=== PATIENT | female | born 1940 | race Caucasian/White ===

== ENCOUNTER 2018-06-23 16:41 | Outpatient (CLI) | payer OTHER | END 2018-06-23 16:46 | disposition home or self-care (01) | LOC: SONOGRAMA 16:41 | DX: N61.0 Mastitis without abscess (principal); N61.1 Abscess of the breast and nipple ==

== ENCOUNTER 2018-06-26 14:56 | Outpatient (CLI) | payer OTHER | END 2018-06-26 15:00 | disposition home or self-care (01) | LOC: LAB 14:56 | DX: N61.1 Abscess of the breast and nipple (principal) ==

== ENCOUNTER 2018-11-16 08:00 | Inpatient (IN) | payer OTHER ==
[~2018-11-16] VITALS: Ht 154.9 cm; Wt 104.3 kg
[2018-11-16] MEDS ORDERED: RYTHMOL SR225 MG PO (10:15)
[2018-11-16] MEDS ORDERED: NORVASC10 MG PO (10:15)
[2018-11-16] MEDS ORDERED: BONIVA150 MG (10:15)
[2018-11-16] MEDS ORDERED: TAMOXIFEN CITRA20 MG PO (10:16)
[2018-11-16] MEDS ORDERED: LIPITOR 10 MG (10:16)
[2018-11-16] MEDS ORDERED: METFORMIN HCL500 MG PO (10:16)
[2018-11-16] MEDS ORDERED: NEURONTIN300 MG PO (10:17)
[2018-11-16] MEDS ORDERED: TEMAZEPAM 15 MG (10:17)
[2018-11-16] MEDS ORDERED: DETROL (10:17)
[2018-11-16] MEDS ORDERED: [UNRECOGNIZED DRUG - OTHER] (10:17)
[2018-11-16] MEDS ORDERED: PROTONIX40 M1 PO (10:18)
[2018-11-24] MEDS ORDERED: ATORVASTATIN CA10 MG PO (08:06)
[2018-11-24] MEDS ORDERED: RESTORIL15 MG PO (08:08)
[2018-11-24] MEDS ORDERED: DETROL PO (08:08)
[2018-11-24] MEDS ORDERED: IRBESARTAN150 MG PO (08:14)
[2018-11-24] MEDS ORDERED: SINGULAIR10 MG PO (08:16)
== END 2018-11-26 11:06 | disposition home or self-care (01) | DRG 585 ==
LOC: ADM 08:00 → EDSTATUS 11-17 08:00 → CIR.AMB 11-17 08:00 → SURH 11-17 08:00 → O/R 11-24 05:00 → SURH 11-24 11:19
PROVIDERS: ADMIT Surgery
PROC: 0H9T0ZZ Drainage of Right Breast, Open Approach (ICD-10-PCS; 2018-11-24)
PROC: 0HBT0ZZ Excision of Right Breast, Open Approach (ICD-10-PCS; principal; 2018-11-24 22:15)
DX: D24.1 Benign neoplasm of right breast (principal); N61.1 Abscess of the breast and nipple; E11.9 Type 2 diabetes mellitus without complications; I11.9 Hypertensive heart disease without heart failure; J45.20 Mild intermittent asthma, uncomplicated; I49.8 Other specified cardiac arrhythmias

== ENCOUNTER 2020-09-11 01:37 | Inpatient (IN) | payer OTHER ==
[~2020-09-11] VITALS: Ht 154.9 cm; Wt 113.4 kg
[~2020-09-11 01:37] MED LIST: ATORVASTATIN CA10 MG PO; BONIVA150 MG; DETROL; DETROL PO; IRBESARTAN150 MG PO; LIPITOR 10 MG; METFORMIN HCL500 MG PO; NEURONTIN300 MG PO; NORVASC10 MG PO; PROTONIX40 M1 PO; RESTORIL15 MG PO; RYTHMOL SR225 MG PO; SINGULAIR10 MG PO; TAMOXIFEN CITRA20 MG PO; TEMAZEPAM 15 MG; [UNRECOGNIZED DRUG - OTHER]
[2020-09-27] MEDS ORDERED: XARELTO20 MG PO (09:47)
== END 2020-09-27 14:43 | DRG 481 ==
LOC: ER 01:37 → SURH 08:48 → SEC-K 08:48 → SURH 20:13
PROVIDERS: ADMIT Orthopaedic Surgery Sports Medicine; ATTEND Orthopaedic Surgery Sports Medicine
PROC: 0QS736Z Reposition Left Upper Femur with Intramedullary Internal Fixation Device, Percutaneous Approach (ICD-10-PCS; principal; 2020-09-12 11:15)
PROC: 3E0F7SF Introduction of Other Gas into Respiratory Tract, Via Natural or Artificial Opening (ICD-10-PCS; 2020-09-13)
PROC: 4A12X4Z Monitoring of Cardiac Electrical Activity, External Approach (ICD-10-PCS; 2020-09-13)
PROC: 4A033R1 Measurement of Arterial Saturation, Peripheral, Percutaneous Approach (ICD-10-PCS; 2020-09-14)
PROC: 30233N1 Transfusion of Nonautologous Red Blood Cells into Peripheral Vein, Percutaneous Approach (ICD-10-PCS; 2020-09-14)
PROC: 02HV33Z Insertion of Infusion Device into Superior Vena Cava, Percutaneous Approach (ICD-10-PCS; 2020-09-16)
DX: S72.492A Other fracture of lower end of left femur, initial encounter for closed fracture (principal); I48.20 Chronic atrial fibrillation, unspecified; N39.0 Urinary tract infection, site not specified; M97.02XA Periprosthetic fracture around internal prosthetic left hip joint, initial encounter; W18.39XA Other fall on same level, initial encounter; Z20.822 Contact with and (suspected) exposure to COVID-19; E11.9 Type 2 diabetes mellitus without complications; I11.9 Hypertensive heart disease without heart failure; E66.01 Morbid (severe) obesity due to excess calories; Z79.01 Long term (current) use of anticoagulants; D64.9 Anemia, unspecified; R50.82 Postprocedural fever; B96.5 Pseudomonas (aeruginosa) (mallei) (pseudomallei) as the cause of diseases classified elsewhere